=== PATIENT | male | born 1995 | race Caucasian/White ===

== ENCOUNTER 2021-07-22 18:21 | Emergency (ER) | payer BC ==
[~2021-07-22] VITALS: Ht 182.9 cm; Wt 70.3 kg
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
--- NOTE | 2021-07-22 20:15 | NUR ---
PT TAKEN TO CT VIA [facility]
--- NOTE | 2021-07-22 21:22 | NUR ---
Patient discharged to home in stable condition. Written and verbal after care instructions given. Patient verbalizes understanding of instruction. PT ambulatory with a steady gait
[2021-07-22 21:23] VITALS: BP 121/79
== END 2021-07-22 21:23 | disposition home or self-care (01) ==
LOC: ER 18:27
DX: S06.0X0A Concussion without loss of consciousness, initial encounter (principal); J45.909 Unspecified asthma, uncomplicated; Z88.0 Allergy status to penicillin; Z60.2 Problems related to living alone; W21.02XA Struck by soccer ball, initial encounter; Y93.66 Activity, soccer; Y92.322 Soccer field as the place of occurrence of the external cause; Y99.8 Other external cause status
CPT/HCPCS: 70450-TC

== ENCOUNTER 2022-07-04 23:30 | Emergency (ER) | payer BC ==
[~2022-07-04] VITALS: Ht 180.3 cm; Wt 74.8 kg
[2022-07-05 01:32] VITALS: BP 135/78
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
--- NOTE | 2022-07-05 02:54 | NUR ---
PT TO CT, ACCOMPANIED BY TECH
--- NOTE | 2022-07-05 03:00 | NUR ---
PT RETURNED TO ER BED [address]
--- NOTE | 2022-07-05 04:47 | NUR ---
PT SIGNED AMA FORM
== END 2022-07-05 04:58 | disposition left against medical advice (07) ==
LOC: ER 23:36
DX: S06.0XAA Concussion with loss of consciousness status unknown, initial encounter (principal); J45.909 Unspecified asthma, uncomplicated; Z88.0 Allergy status to penicillin; Z60.2 Problems related to living alone; W21.00XA Struck by hit or thrown ball, unspecified type, initial encounter; Y93.89 Activity, other specified; Y92.89 Other specified places as the place of occurrence of the external cause; Y99.8 Other external cause status
CPT/HCPCS: 70450-TC